=== PATIENT | female | born 1960 | race Caucasian/White ===

== ENCOUNTER 2017-11-27 06:38 | Day surgery (SDC) | payer BC ==
[2017-11-27] MEDS ORDERED: Lactated Ringers 1,000 ML IV SCH (07:00)
[2017-11-27] MEDS ORDERED: Propofol 200 MG/20 ML SDV ONE ×3 (08:06→11:29)
[2017-11-27] MEDS ORDERED: fentaNYL 100 MCG/2 ML SDV ONE (08:06)
[2017-11-27] MEDS ORDERED: Lactated Ringers 1,000 ML IV ONE (12:00)
--- NOTE | 2017-11-27 22:00 | OR ---
REFERRING PROVIDER: Dr. Soumya Escoto. PRE-OPERATIVE DIAGNOSIS: Positive Cologuard stool card. This is the patient's first colonoscopy. There is a positive family history of polyps in mother, who she states goes in for colonoscopy every year. POST-OPERATIVE DIAGNOSES: 1. A 4 mm polyp at 15 cm from anal verge, removed with cold forceps. 2. Poor prep despite 2 saline enemas prior to the procedure. I was unable to visualize the colon very well and unable to suction given the residual particulate stool present. 3. Tortuous colon. I was only able to advance to the mid right colon past the hepatic flexure. I believe the entry to the cecum was visualized, but was not able to visualize any of the cecum itself. 4. Mild hemorrhoids present. PROCEDURE: Colonoscopy with polypectomy x1 using cold forceps. However, scope was only able to be advanced to the mid right colon just past the hepatic flexure. SURGEON: Chris Soto M.D. ANESTHESIA: Monitored anesthesia care. BOWEL PREP: Poor despite 2 saline enemas given before the procedure. Residual particulate stool still present and prohibited me from suctioning out stool very well. DESCRIPTION OF PROCEDURE: Zora is a 57-year-old female, brought to the endoscopy suite after discussing risks and benefits of the procedure. Informed consent was obtained for conscious sedation and colonoscopy with or without biopsy and/or polypectomy. We also discussed possibility of missed lesions. Pre-procedure exam was unremarkable. IV, oxygen, and monitors were placed. The patient was placed in the left lateral decubitus position. Sedation was administered and a digital rectal exam was performed which was unremarkable. Colonoscope was passed into the rectum and slowly past the hepatic flexure to the mid right colon. The entry to the cecum I believe was visualized, but was unable to see the cecum itself. The prep was poor and it was difficult to suction out much of any of the residual particulate stool present. This did clog the scope multiple times. The colonoscope was slowly withdrawn and the mucosa was closed observed in a direct circumferential manner. The viewed portion of the ascending colon was unremarkable. Transverse colon was unremarkable. Descending colon was unremarkable. Sigmoid colon revealed a 4 mm polyp at 15 cm, removed with cold forceps. Retroflexion was performed. Rectal mucosa was remarkable for some mild internal hemorrhoids. Scope was removed. The patient tolerated the procedure well. The patient was monitored until that baseline status. Discharge instructions were reviewed and the patient was discharged in good condition. COMPLICATIONS: None. TOTAL TIME: 49 minutes. ESTIMATED BLOOD LOSS: About 1 mL. RECOMMENDATIONS/FOLLOW-UP: We will await results of path report. Given the positive Cologuard test along with poor prep leading to poor visualization, I would recommend repeating scope within the next 6-12 months. Also, given the tortuous nature of the colon and inability to make it all the way to the cecum, I would recommend having GI attempt the next procedure. The patient would benefit for extended length of clear fluids along with possible split prep, as the full prep caused nausea and vomiting. I would like to kindly thank Dr. Escoto for this referral. DMB: 11/27/2017 12:13:41 MODL: 11/27/2017 18:27:00 /[id number]
== END 2017-11-27 14:05 | disposition home or self-care (01) ==
LOC: VM.SDS 06:38
PROVIDERS: ATTEND Family Medicine
DX: R19.5 Other fecal abnormalities (principal); K63.5 Polyp of colon; K56.2 Volvulus; K64.8 Other hemorrhoids; E11.9 Type 2 diabetes mellitus without complications; I10 Essential (primary) hypertension; E78.00 Pure hypercholesterolemia, unspecified; Z87.891 Personal history of nicotine dependence; Z79.4 Long term (current) use of insulin; Z79.899 Other long term (current) drug therapy; Z83.71 Family history of colonic polyps
CPT/HCPCS: 82962; J2704; J3010; J7120

== ENCOUNTER 2024-04-02 06:33 | Day surgery (SDC) | payer BC ==
[2024-04-02] MEDS: Lactated Ringers 1,000 ML IV SCH (06:53)
[2024-04-02 07:05] LABS: GLUCOSE,POC 78 mg/dL (70-99)
[2024-04-02] MEDS ORDERED: fentaNYL 100 MCG/2 ML SDV ONE (07:49)
[2024-04-02] MEDS ORDERED: Propofol 200 MG/20 ML SDV ONE ×2 (07:49→08:06)
== END 2024-04-02 09:50 | disposition home or self-care (01) ==
LOC: VM.SDS 06:33
PROVIDERS: ATTEND Student in an Organized Health Care Education/Training Program
DX: Z12.11 Encounter for screening for malignant neoplasm of colon (principal); D12.5 Benign neoplasm of sigmoid colon; I10 Essential (primary) hypertension; E11.9 Type 2 diabetes mellitus without complications; K21.9 Gastro-esophageal reflux disease without esophagitis; E78.00 Pure hypercholesterolemia, unspecified; E04.1 Nontoxic single thyroid nodule; Z79.899 Other long term (current) drug therapy; Z79.82 Long term (current) use of aspirin; Z79.84 Long term (current) use of oral hypoglycemic drugs; Z88.0 Allergy status to penicillin; Z88.8 Allergy status to other drugs, medicaments and biological substances; Z87.891 Personal history of nicotine dependence; Z86.010 Personal history of colon polyps; Z80.0 Family history of malignant neoplasm of digestive organs
CPT/HCPCS: 00811; 82947; J2704; J3010; J7120